=== PATIENT | male | born 1935 | race Caucasian/White ===

== ENCOUNTER 2016-05-14 09:01 | Inpatient (IN) | payer OTHER ==
[~2016-05-14] VITALS: Ht 170.2 cm; Wt 72.0 kg
[2016-05-14] MEDS ORDERED: SIMVASTATIN20 MG PO (09:51)
[2016-05-14] MEDS ORDERED: LOSARTAN POTASS25 MG PO (09:52)
[2016-05-14] MEDS ORDERED: DONEPEZIL HCL10 MG PO (09:52)
[2016-05-14] MEDS ORDERED: PIOGLITAZONE HC30 MG PO (09:53)
[2016-05-14] MEDS ORDERED: OMEPRAZOLE40 M1 PO (09:53)
[2016-05-14] MEDS ORDERED: SERTRALINE HCL100 MG PO (09:54)
[2016-05-14] MEDS ORDERED: ASPIR 8181 M1 PO (09:55)
[2016-05-14] MEDS ORDERED: CALCIUM-MAGNES1 EAC4 PO (09:56)
[2016-05-14 10:08] LABS: EOSINOPHIL (%) 1.8 % (0-5); EOSINOPHIL COUNT 0.1 K/uL (0-0.3); HEMATOCRIT 35.3 % (38.0-50.0); IMMATURE GRANULOCYTE (%) 1.2 % (0.0-0.7); IMMATURE GRANULOCYTE COUNT 0.9 K/uL; LYMPHOCYTE COUNT 1.3 K/uL (1.0-2.8); MCH 32.7 PG (29.0-34.0); MCHC 33.4 G/DL (30.0-36.0); MCV 97.8 FL (86-99); MEAN PLAT.VOLUME 9.6 uM^3 (9.0-12.4); MONOCYTE (%) 7.1 % (3-12); MONOCYTE COUNT 0.5 K/uL (0-0.8); NEUTROPHIL (%) 71.8 % (45-76); NEUTROPHIL COUNT 5.3 K/uL (1.8-6.4); PLATELET COUNT 178 K/uL (156-360); RBC DIS.WIDTH-SD 41.1 % (39-53); RED BLOOD COUNT 3.61 M/uL (4.00-5.50); WHITE BLOOD COUNT 7.3 K/uL (4.1-10.2)
[2016-05-14 10:28] LABS: CHLORIDE 107 mEq/L (99-109); POTASSIUM 4.4 mEq/L (3.7-5.4); SODIUM 139 mEq/L (136-147)
[2016-05-14 10:30] LABS: GLUCOSE 129 mg/dL (70-99)
[2016-05-14 10:31] LABS: ANION GAP 6 MEQ/L (2-14)
[2016-05-14 10:32] LABS: TOTAL BILIRUBIN 0.3 mg/dL (0.0-1.0)
[2016-05-14 10:33] LABS: ALKALINE PHOSPHATASE 109 IU/L (3-129)
[2016-05-14 10:34] LABS: GFR ESTIMATE (CALCULATED) > 59 mL/min/
[2016-05-14 10:35] LABS: UREA NITROGEN (BUN) 27 mg/dL (9-23)
[2016-05-14 10:49] LABS: POINT-OF-CARE METER ID UU14100415
[2016-05-14 11:07] LABS: ADD MIUA? NO; BILIRUBIN NEGATIVE; BLOOD NEGATIVE; COLOR STRAW ((YELLOW)); GLUCOSE (STRIP) NEGATIVE; KETONES NEGATIVE; LEUKOCYTES NEGATIVE; NITRITE NEGATIVE; PROTEIN (STRIP) NEGATIVE; SPECIFIC GRAVITY 1.023 (1.000-1.030); UCUL ADDED? NO; UROBILINOGEN 0.2 MG/DL (0.2-1.0)
[2016-05-14 11:18] LABS: AMPHETAMINE NEGATIVE (500 ng/mL); BARBITURATES NEGATIVE (200 ng/mL); BENZODIAZEPINES NEGATIVE (150 ng/mL); COCAINE NEGATIVE (150 ng/mL); INTERNAL CONTROLS VALID? YES; METHADONE NEGATIVE (200 ng/mL); METHAMPHETAMINE NEGATIVE (500 ng/mL); OPIATES (MORPHINE) NEGATIVE (100 ng/mL); OXYCODONE NEGATIVE (100 ng/mL); PHENCYCLIDINE NEGATIVE (25 ng/mL); PROPOXYPHENE NEGATIVE (300 ng/mL); THC CANNABINOIDS NEGATIVE (50 ng/mL); TRICYCLIC ANTIDEPRESSANTS NEGATIVE (300 ng/mL)
[2016-05-14 13:37] LABS: TROP-I INTERPRETATION NEGATIVE; TROPONIN-I < 0.01 ng/mL (0.0-0.30)
[2016-05-14 13:46] LABS: SAMPLE HEMOLYSIS CHECK 0; SAMPLE ICTERIC CHECK 0; SAMPLE LIPEMIA CHECK 0
[2016-05-14 13:51] LABS: HDL CHOLESTEROL 33 MG/DL (Desirable>=40); LDL CHOLESTEROL 92 mg/dL (Desirable<100); NON-HDL CHOLESTEROL 114 mg/dL (Desirable<160); TOTAL CHOLESTEROL 147 mg/dL (Desirable<200); TRIGLYCERIDES 109 MG/DL (Normal: <150)
[2016-05-14 17:04] LABS: POINT-OF-CARE METER ID UU13113702
[2016-05-14 20:00] VITALS: BP 137/63
[2016-05-14 21:14] LABS: TROP-I INTERPRETATION NEGATIVE; TROPONIN-I < 0.01 ng/mL (0.0-0.30)
[2016-05-15] VITALS (7 sets, daily range): BP systolic 122–138; BP diastolic 56–64
[2016-05-15 10:10] LABS: EOSINOPHIL (%) 1.5 % (0-5); EOSINOPHIL COUNT 0.1 K/uL (0-0.3); HEMATOCRIT 37.9 % (38.0-50.0); IMMATURE GRANULOCYTE (%) 0.2 % (0.0-0.7); LYMPHOCYTE COUNT 1.2 K/uL (1.0-2.8); MCH 31.3 PG (29.0-34.0); MCHC 31.9 G/DL (30.0-36.0); MCV 97.9 FL (86-99); MEAN PLAT.VOLUME 10.1 uM^3 (9.0-12.4); MONOCYTE (%) 6.4 % (3-12); MONOCYTE COUNT 0.6 K/uL (0-0.8); NEUTROPHIL (%) 78.6 % (45-76); PLATELET COUNT 182 K/uL (156-360); RBC DIS.WIDTH-CV 12.5 % (11.8-14.6); RBC DIS.WIDTH-SD 44.1 % (39-53); RED BLOOD COUNT 3.87 M/uL (4.00-5.50); WHITE BLOOD COUNT 8.9 K/uL (4.1-10.2)
[2016-05-15 10:20] LABS: ANION GAP 6 MEQ/L (2-14); CHLORIDE 101 MEQ/L (99-109); POTASSIUM 4.1 MEQ/L (3.7-5.4); SAMPLE HEMOLYSIS CHECK 0; SAMPLE ICTERIC CHECK 0; SAMPLE LIPEMIA CHECK 0; SODIUM 137 MEQ/L (136-147)
[2016-05-15 10:25] LABS: GFR ESTIMATE (CALCULATED) > 59 mL/min/; GLUCOSE 173 mg/dL (70-99); UREA NITROGEN (BUN) 18 mg/dL (9-23)
[2016-05-16 00:05] VITALS: BP 124/59
[2016-05-16 04:10] VITALS: BP 121/61
[2016-05-16 07:01] LABS: EOSINOPHIL (%) 1.4 % (0-5); EOSINOPHIL COUNT 0.1 K/uL (0-0.3); HEMATOCRIT 34.8 % (38.0-50.0); IMMATURE GRANULOCYTE (%) 0.3 % (0.0-0.7); LYMPHOCYTE COUNT 1.6 K/uL (1.0-2.8); MCH 33.1 PG (29.0-34.0); MCHC 33.9 G/DL (30.0-36.0); MCV 97.5 FL (86-99); MONOCYTE (%) 8.5 % (3-12); MONOCYTE COUNT 0.7 K/uL (0-0.8); NEUTROPHIL (%) 68.7 % (45-76); NEUTROPHIL COUNT 5.2 K/uL (1.8-6.4); PLATELET COUNT 149 K/uL (156-360); RBC DIS.WIDTH-CV 12.4 % (11.8-14.6); RBC DIS.WIDTH-SD 43.9 % (39-53); RED BLOOD COUNT 3.57 M/uL (4.00-5.50); WHITE BLOOD COUNT 7.6 K/uL (4.1-10.2)
[2016-05-16 07:26] LABS: ANION GAP 7 MEQ/L (2-14); CHLORIDE 103 MEQ/L (99-109); GFR ESTIMATE (CALCULATED) > 59 mL/min/; SAMPLE HEMOLYSIS CHECK 0; SAMPLE ICTERIC CHECK 0; SAMPLE LIPEMIA CHECK 0; SODIUM 137 MEQ/L (136-147); UREA NITROGEN (BUN) 22 mg/dL (9-23)
[2016-05-16 07:30] LABS: GLUCOSE 117 mg/dL (70-99)
[2016-05-16 09:10] VITALS: BP 156/77
[2016-05-16 11:12] LABS: Estimated Average Glucose 151 mg/dL (70-123); HEMOGLOBIN A1c (GLYCOHEMOGLOB) 6.9 % HGB (Below 5.7)
[2016-05-16 12:27] VITALS: BP 153/66
== END 2016-05-16 16:24 | disposition home or self-care (01) | DRG 69 ==
LOC: EME 09:01 → EDOF 11:50 → 5SOUTH 11:50 → EDOF 13:11 → 5SOUTH 19:09
PROVIDERS: Internal Medicine; Physician Assistant; Student in an Organized Health Care Education/Training Program
DX: G45.9 Transient cerebral ischemic attack, unspecified (principal); R00.1 Bradycardia, unspecified; F03.90 Unspecified dementia, unspecified severity, without behavioral disturbance, psychotic disturbance, mood disturbance, and anxiety; E11.9 Type 2 diabetes mellitus without complications; I10 Essential (primary) hypertension; R41.83 Borderline intellectual functioning; H26.9 Unspecified cataract; D64.9 Anemia, unspecified; K21.9 Gastro-esophageal reflux disease without esophagitis
CPT/HCPCS: 70450; 70496; 70498; 70551; 71020; 80048; 80053; 80061; 81003; 82803; 82948; 83036; 84484; 85025; 92610 GN; 93005; 93306; 94799; 99281; 99285; J1650; J1815; J2310; J7030

== ENCOUNTER 2016-08-13 10:54 | Day surgery (SDC) | payer OTHER ==
[~2016-08-13] VITALS: Ht 165.1 cm; Wt 72.9 kg
[~2016-08-13 10:54] MED LIST: ASPIR 8181 M1 PO; CALCIUM-MAGNES1 EAC4 PO; DONEPEZIL HCL10 MG PO; LOSARTAN POTASS25 MG PO; OMEPRAZOLE40 M1 PO; PIOGLITAZONE HC30 MG PO; SERTRALINE HCL100 MG PO; SIMVASTATIN20 MG PO
[2016-08-13 12:10] LABS: POINT-OF-CARE METER ID UU14174212
[2016-08-13 12:12] VITALS: BP 170/77
[2016-08-13 16:05] LABS: POINT-OF-CARE METER ID UU13113675
[2016-08-13 16:25] VITALS: BP 177/77
[2016-08-13 16:52] VITALS: BP 139/63
[2016-08-13 17:33] VITALS: BP 138/84
== END 2016-08-13 17:34 | disposition home or self-care (01) ==
LOC: SDC 10:54
PROVIDERS: Ophthalmology
DX: H59.021 Cataract (lens) fragments in eye following cataract surgery, right eye (principal); Z98.41 Cataract extraction status, right eye; R00.1 Bradycardia, unspecified; I10 Essential (primary) hypertension; I65.21 Occlusion and stenosis of right carotid artery; E11.9 Type 2 diabetes mellitus without complications; K21.9 Gastro-esophageal reflux disease without esophagitis; E78.00 Pure hypercholesterolemia, unspecified; F70 Mild intellectual disabilities; F03.90 Unspecified dementia, unspecified severity, without behavioral disturbance, psychotic disturbance, mood disturbance, and anxiety; F32.9 Major depressive disorder, single episode, unspecified; Z86.73 Personal history of transient ischemic attack (TIA), and cerebral infarction without residual deficits; Z79.82 Long term (current) use of aspirin; Z79.899 Other long term (current) drug therapy
CPT/HCPCS: 82948; 87641; J0690; J0713; J1100; J2405; J3010

== ENCOUNTER 2016-08-25 16:00 | Emergency (ER) | payer OTHER ==
[~2016-08-25] VITALS: Ht 157.5 cm; Wt 74.1 kg
[2016-08-25 16:44] LABS: HEMATOCRIT 38.5 % (38.0-50.0); MCH 32.6 PG (29.0-34.0); MEAN PLAT.VOLUME 9.4 uM^3 (9.0-12.4); PLATELET COUNT 170 K/uL (156-360); RBC DIS.WIDTH-CV 12.4 % (11.8-14.6); RBC DIS.WIDTH-SD 44.7 % (39-53); RED BLOOD COUNT 3.89 M/uL (4.00-5.50); WHITE BLOOD COUNT 10.6 K/uL (4.1-10.2)
[2016-08-25 16:53] LABS: CHLORIDE 100 mEq/L (99-109); POTASSIUM 4.4 mEq/L (3.7-5.4); SODIUM 136 mEq/L (136-147)
[2016-08-25 16:54] LABS: GLUCOSE 200 mg/dL (70-99)
[2016-08-25 16:56] LABS: ANION GAP 11 MEQ/L (2-14)
[2016-08-25 16:58] LABS: GFR ESTIMATE (CALCULATED) 57 mL/min/
[2016-08-25 17:04] LABS: TROP-I INTERPRETATION NEGATIVE; TROPONIN-I < 0.01 ng/mL (0.0-0.30)
[2016-08-25 17:12] LABS: UREA NITROGEN (BUN) 28 mg/dL (9-23)
[2016-08-25 19:12] LABS: TROP-I INTERPRETATION NEGATIVE; TROPONIN-I < 0.01 ng/mL (0.0-0.30)
[2016-08-25 19:36] LABS: LIPASE 5 U/L (1.0-51.0)
[2016-08-25 19:43] LABS: ALKALINE PHOSPHATASE 56 IU/L (3-129)
[2016-08-25 20:03] LABS: ADD MIUA? NO; BILIRUBIN NEGATIVE; BLOOD NEGATIVE; COLOR YELLOW ((YELLOW)); GLUCOSE (STRIP) NEGATIVE; KETONES NEGATIVE; LEUKOCYTES NEGATIVE; NITRITE NEGATIVE; PROTEIN (STRIP) NEGATIVE; SPECIFIC GRAVITY 1.015 (1.000-1.030); UCUL ADDED? NO; UROBILINOGEN 0.2 MG/DL (0.2-1.0)
[2016-08-25 20:03] LABS: DIRECT BILIRUBIN 0.1 mg/dL (0.0-0.3); TOTAL BILIRUBIN 0.4 MG/DL (0.0-1.0)
[2016-08-25] MEDS ORDERED: ZOFRAN4 MG PO (21:27)
[2016-08-25 21:31] LABS: POINT-OF-CARE METER ID UU13113800
[2016-08-25 21:40] VITALS: BP 175/77
== END 2016-08-25 21:40 | disposition home or self-care (01) ==
LOC: EME 16:00
PROVIDERS: Physician Assistant
DX: K44.9 Diaphragmatic hernia without obstruction or gangrene (principal); E11.65 Type 2 diabetes mellitus with hyperglycemia; I10 Essential (primary) hypertension; F03.90 Unspecified dementia, unspecified severity, without behavioral disturbance, psychotic disturbance, mood disturbance, and anxiety
CPT/HCPCS: 71020; 74177; 80048; 80076; 81003; 82010; 82948; 83690; 84484; 85027; 93005; 99281; 99285; J7030

== ENCOUNTER 2016-08-30 13:47 | Emergency (ER) | payer OTHER ==
[~2016-08-30] VITALS: Ht 172.7 cm; Wt 73.4 kg
[~2016-08-30 13:47] MED LIST changes: +ZOFRAN4 MG PO
[2016-08-30 15:42] LABS: ADD MIUA? YES; BILIRUBIN NEGATIVE; BLOOD NEGATIVE; COLOR YELLOW ((YELLOW)); GLUCOSE (STRIP) NEGATIVE; KETONES NEGATIVE; LEUKOCYTES NEGATIVE; NITRITE NEGATIVE; PROTEIN (STRIP) NEGATIVE; SPECIFIC GRAVITY 1.012 (1.000-1.030)
[2016-08-30 15:49] LABS: BACTERIA NONE SEEN /HPF; EPITHELIAL CELLS RARE /HPF; MUCUS NONE SEEN /LPF; RED BLOOD CELLS 0-5 /HPF (0-5); UCUL ADDED? NO; WHITE BLOOD CELLS 0-5 /HPF (0-5)
[2016-08-30 15:53] LABS: EOSINOPHIL COUNT 0.1 K/uL (0-0.3); HEMATOCRIT 37.8 % (38.0-50.0); IMMATURE GRANULOCYTE (%) 0.5 % (0.0-0.7); INSTRUMENT ABS NEUTROPHIL CT 6.9 K/uL; LYMPHOCYTE COUNT 1.1 K/uL (1.0-2.8); MCH 32.6 PG (29.0-34.0); MCHC 33.1 G/DL (30.0-36.0); MCV 98.4 FL (86-99); MEAN PLAT.VOLUME 9.4 uM^3 (9.0-12.4); MONOCYTE (%) 7.1 % (3-12); MONOCYTE COUNT 0.6 K/uL (0-0.8); NEUTROPHIL (%) 78.5 % (45-76); NEUTROPHIL COUNT 6.9 K/uL (1.8-6.4); PLATELET COUNT 159 K/uL (156-360); RBC DIS.WIDTH-CV 12.1 % (11.8-14.6); RBC DIS.WIDTH-SD 43.8 % (39-53); RED BLOOD COUNT 3.84 M/uL (4.00-5.50); WHITE BLOOD COUNT 8.8 K/uL (4.1-10.2)
[2016-08-30 16:00] LABS: CHLORIDE 103 mEq/L (99-109); POTASSIUM 3.9 mEq/L (3.7-5.4); SODIUM 137 mEq/L (136-147)
[2016-08-30 16:01] LABS: MAGNESIUM 2.1 mg/dL (1.3-2.7)
[2016-08-30 16:03] LABS: GLUCOSE 120 mg/dL (70-99)
[2016-08-30 16:04] LABS: ANION GAP 9 MEQ/L (2-14)
[2016-08-30 16:05] LABS: TOTAL BILIRUBIN 0.6 mg/dL (0.0-1.0)
[2016-08-30 16:06] LABS: ALKALINE PHOSPHATASE 109 IU/L (3-129)
[2016-08-30 16:07] LABS: GFR ESTIMATE (CALCULATED) > 59 mL/min/
[2016-08-30 16:08] LABS: UREA NITROGEN (BUN) 17 mg/dL (9-23)
[2016-08-30 18:02] VITALS: BP 185/85
== END 2016-08-30 18:31 | disposition home or self-care (01) ==
LOC: EME 13:47
PROVIDERS: Emergency Medicine
DX: R56.9 Unspecified convulsions (principal); F79 Unspecified intellectual disabilities; E11.9 Type 2 diabetes mellitus without complications; Z79.82 Long term (current) use of aspirin
CPT/HCPCS: 70450; 80053; 81003; 83735; 85025; 93005; 99281; 99285; J7030

== ENCOUNTER 2017-05-16 22:20 | Inpatient (IN) | payer OTHER ==
[~2017-05-16] VITALS: Ht 162.6 cm; Wt 80.0 kg
[~2017-05-16 22:20] MED LIST changes: +TYLENOL REGULA325 MG PO
[2017-05-17 06:16] VITALS: BP 157/70
[2017-05-17 12:24] VITALS: BP 169/77
[2017-05-17 13:05] VITALS: BP 118/74
[2017-05-17 16:10] VITALS: BP 135/60
[2017-05-17 18:32] LABS: HEMATOCRIT 29.7 % (38.0-50.0); MCV 102.1 FL (86-99)
[2017-05-17 18:38] LABS: HEMOGLOBIN 9.6 G/DL (12.5-16.6)
[2017-05-17 20:17] VITALS: BP 111/54
[2017-05-18] VITALS (7 sets, daily range): BP systolic 129–190; BP diastolic 58–82
[2017-05-18 05:55] LABS: CHLORIDE 101 MEQ/L (99-109); CREATININE 1.5 MG/DL (0.6-1.3); GFR ESTIMATE (CALCULATED) 48 mL/min/ (58.99-99999); GLUCOSE 168 mg/dL (70-99); POTASSIUM 4.2 MEQ/L (3.7-5.4); SODIUM 136 MEQ/L (136-147); UREA NITROGEN (BUN) 30 mg/dL (9-23)
[2017-05-19 00:30] VITALS: BP 134/61
[2017-05-19 04:30] VITALS: BP 122/57
[2017-05-19 08:00] VITALS: BP 172/76
[2017-05-19] MEDS ORDERED: DOCUSATE SODIU100 MG PO (09:40)
[2017-05-19] MEDS ORDERED: HYDROCODON-ACE1 EAC7 PO (09:41)
[2017-05-19] MEDS ORDERED: ELIQUIS2.5 MG PO (09:41)
[2017-05-19 12:00] VITALS: BP 178/79
[2017-05-19 15:49] VITALS: BP 179/79
[2017-05-19 20:14] VITALS: BP 180/86
[2017-05-20] VITALS (8 sets, daily range): BP systolic 105–174; BP diastolic 50–71
[2017-05-20 09:31] LABS: HEMATOCRIT 24.1 % (38.0-50.0); HEMOGLOBIN 8.1 G/DL (12.5-16.6); MCH 33.2 PG (29.0-34.0); MCHC 33.6 G/DL (30.0-36.0); MCV 98.8 FL (86-99); PLATELET COUNT 125 K/uL (156-360); RBC DIS.WIDTH-CV 12.3 % (11.8-14.6); RBC DIS.WIDTH-SD 44.6 % (39-53); WHITE BLOOD COUNT 7.1 K/uL (4.1-10.2)
[2017-05-20 09:45] LABS: RED BLOOD COUNT 2.44 M/uL (4.00-5.50)
[2017-05-20 11:24] LABS: CHLORIDE 99 MEQ/L (99-109); CREATININE 1.1 MG/DL (0.6-1.3); GFR ESTIMATE (CALCULATED) > 59 mL/min/ (58.99-99999); GLUCOSE 236 mg/dL (70-99); POTASSIUM 3.8 MEQ/L (3.7-5.4); SODIUM 135 MEQ/L (136-147); UREA NITROGEN (BUN) 25 mg/dL (9-23)
[2017-05-20 17:01] LABS: C DIFF TOXIN NEGATIVE (NEGATIVE)
[2017-05-21] VITALS (17 sets, daily range): BP systolic 109–134; BP diastolic 45–62
[2017-05-21 06:14] LABS: CHLORIDE 102 MEQ/L (99-109); CREATININE 1.1 MG/DL (0.6-1.3); GFR ESTIMATE (CALCULATED) > 59 mL/min/ (58.99-99999); GLUCOSE 158 mg/dL (70-99); POTASSIUM 3.4 MEQ/L (3.7-5.4); SODIUM 138 MEQ/L (136-147)
[2017-05-21 06:20] LABS: UREA NITROGEN (BUN) 41 mg/dL (9-23)
[2017-05-21 07:43] LABS: HEMATOCRIT 18.6 % (38.0-50.0); MCH 33.5 PG (29.0-34.0); MCHC 33.3 G/DL (30.0-36.0); MCV 100.5 FL (86-99); PLATELET COUNT 106 K/uL (156-360); RBC DIS.WIDTH-CV 12.5 % (11.8-14.6); RBC DIS.WIDTH-SD 45.8 % (39-53); WHITE BLOOD COUNT 6.1 K/uL (4.1-10.2)
[2017-05-21 07:51] LABS: HEMOGLOBIN 6.2 G/DL (12.5-16.6); RED BLOOD COUNT 1.85 M/uL (4.00-5.50)
[2017-05-21 10:21] LABS: HEMATOCRIT 19.2 % (38.0-50.0); MCV 100.5 FL (86-99)
[2017-05-21 10:23] LABS: HEMOGLOBIN 6.3 G/DL (12.5-16.6)
[2017-05-21 18:48] LABS: GASTRIC OCCULT BLD. NEGATIVE
[2017-05-21 19:37] LABS: BASOPHIL (%) 0.1 % (0-1); EOSINOPHIL (%) 0.8 % (0-5); EOSINOPHIL COUNT 0.1 K/uL (0-0.3); HEMATOCRIT 25.2 % (38.0-50.0); HEMOGLOBIN 8.3 G/DL (12.5-16.6); IMMATURE GRANULOCYTE (%) 0.5 % (0.0-0.7); LYMPHOCYTE (%) 15.3 % (15-42); LYMPHOCYTE COUNT 1.2 K/uL (1.0-2.8); MCH 31.4 PG (29.0-34.0); MCHC 32.9 G/DL (30.0-36.0); MCV 95.5 FL (86-99); MONOCYTE (%) 12.8 % (3-12); NEUTROPHIL (%) 70.5 % (45-76); NEUTROPHIL COUNT 5.4 K/uL (1.8-6.4); PLATELET COUNT 118 K/uL (156-360); RBC DIS.WIDTH-CV 15.2 % (11.8-14.6); RBC DIS.WIDTH-SD 53.3 % (39-53); RED BLOOD COUNT 2.64 M/uL (4.00-5.50); WHITE BLOOD COUNT 7.6 K/uL (4.1-10.2)
[2017-05-22 00:22] VITALS: BP 174/77
[2017-05-22 01:00] VITALS: BP 138/53
[2017-05-22 06:09] LABS: BASOPHIL (%) 0.3 % (0-1); EOSINOPHIL (%) 1.9 % (0-5); EOSINOPHIL COUNT 0.1 K/uL (0-0.3); HEMATOCRIT 24.7 % (38.0-50.0); IMMATURE GRANULOCYTE (%) 0.5 % (0.0-0.7); LYMPHOCYTE (%) 20.3 % (15-42); LYMPHOCYTE COUNT 1.3 K/uL (1.0-2.8); MCH 31.1 PG (29.0-34.0); MCHC 32.4 G/DL (30.0-36.0); MCV 96.1 FL (86-99); MONOCYTE (%) 11.8 % (3-12); MONOCYTE COUNT 0.7 K/uL (0-0.8); NEUTROPHIL (%) 65.2 % (45-76); NEUTROPHIL COUNT 4.1 K/uL (1.8-6.4); PLATELET COUNT 118 K/uL (156-360); RBC DIS.WIDTH-CV 15.4 % (11.8-14.6); RBC DIS.WIDTH-SD 54.6 % (39-53); RED BLOOD COUNT 2.57 M/uL (4.00-5.50); WHITE BLOOD COUNT 6.3 K/uL (4.1-10.2)
[2017-05-22 06:30] LABS: CHLORIDE 106 MEQ/L (99-109); CREATININE 0.9 MG/DL (0.6-1.3); GFR ESTIMATE (CALCULATED) > 59 mL/min/ (58.99-99999); GLUCOSE 134 mg/dL (70-99); SODIUM 141 MEQ/L (136-147); UREA NITROGEN (BUN) 28 mg/dL (9-23)
[2017-05-22 07:36] VITALS: BP 135/63
[2017-05-22 16:13] VITALS: BP 135/63
[2017-05-22 20:20] LABS: BACTERIA RARE /HPF; EPITHELIAL CELLS RARE /HPF; HYALINE CASTS 0-5 /LPF; MUCUS TRACE /LPF; RED BLOOD CELLS 0-5 /HPF (0-5); WHITE BLOOD CELLS 0-5 /HPF (0-5)
[2017-05-23 00:28] VITALS: BP 124/66
[2017-05-23 06:20] LABS: BASOPHIL (%) 0.3 % (0-1); EOSINOPHIL (%) 2.2 % (0-5); EOSINOPHIL COUNT 0.1 K/uL (0-0.3); HEMATOCRIT 24.9 % (38.0-50.0); IMMATURE GRANULOCYTE (%) 0.6 % (0.0-0.7); LYMPHOCYTE (%) 22.9 % (15-42); LYMPHOCYTE COUNT 1.4 K/uL (1.0-2.8); MCHC 32.1 G/DL (30.0-36.0); MCV 96.5 FL (86-99); MONOCYTE (%) 9.4 % (3-12); MONOCYTE COUNT 0.6 K/uL (0-0.8); NEUTROPHIL (%) 64.6 % (45-76); NEUTROPHIL COUNT 4.1 K/uL (1.8-6.4); PLATELET COUNT 132 K/uL (156-360); RBC DIS.WIDTH-CV 14.9 % (11.8-14.6); RBC DIS.WIDTH-SD 52.6 % (39-53); RED BLOOD COUNT 2.58 M/uL (4.00-5.50); WHITE BLOOD COUNT 6.3 K/uL (4.1-10.2)
[2017-05-23 06:44] LABS: CHLORIDE 105 MEQ/L (99-109); GFR ESTIMATE (CALCULATED) > 59 mL/min/ (58.99-99999); GLUCOSE 135 mg/dL (70-99); SODIUM 139 MEQ/L (136-147); UREA NITROGEN (BUN) 26 mg/dL (9-23)
[2017-05-23 07:45] VITALS: BP 154/71
[2017-05-23 16:25] VITALS: BP 140/67
[2017-05-23 23:19] VITALS: BP 146/70
[2017-05-24 04:41] LABS: BASOPHIL (%) 0.3 % (0-1); EOSINOPHIL (%) 2.3 % (0-5); EOSINOPHIL COUNT 0.2 K/uL (0-0.3); HEMATOCRIT 25.6 % (38.0-50.0); HEMOGLOBIN 8.5 G/DL (12.5-16.6); IMMATURE GRANULOCYTE (%) 1.1 % (0.0-0.7); LYMPHOCYTE (%) 19.6 % (15-42); LYMPHOCYTE COUNT 1.4 K/uL (1.0-2.8); MCH 31.8 PG (29.0-34.0); MCHC 33.2 G/DL (30.0-36.0); MCV 95.9 FL (86-99); MONOCYTE (%) 8.2 % (3-12); MONOCYTE COUNT 0.6 K/uL (0-0.8); NEUTROPHIL (%) 68.5 % (45-76); NEUTROPHIL COUNT 4.9 K/uL (1.8-6.4); PLATELET COUNT 152 K/uL (156-360); RBC DIS.WIDTH-CV 14.2 % (11.8-14.6); RBC DIS.WIDTH-SD 49.4 % (39-53); RED BLOOD COUNT 2.67 M/uL (4.00-5.50); WHITE BLOOD COUNT 7.1 K/uL (4.1-10.2)
[2017-05-24 04:55] LABS: CHLORIDE 103 mEq/L (99-109); POTASSIUM 4.4 mEq/L (3.7-5.4); SODIUM 136 mEq/L (136-147)
[2017-05-24 04:57] LABS: GLUCOSE 133 mg/dL (70-99)
[2017-05-24 05:01] LABS: CREATININE 0.9 mg/dL (0.6-1.3); GFR ESTIMATE (CALCULATED) > 59 mL/min/ (58.99-99999)
[2017-05-24 05:02] LABS: UREA NITROGEN (BUN) 21 mg/dL (9-23)
[2017-05-24 08:11] VITALS: BP 152/68
[2017-05-25 14:16] LABS: STOOL OCCULT BLD 1ST SPECIMEN POSITIVE
== END 2017-05-24 13:21 | DRG 470 ==
LOC: ENRESERV 22:20 → 2SOUTH 05-17 05:57 → 3WEST 05-17 05:57 → 2SOUTH 05-17 11:45 → 3WEST 05-17 12:03 → 2SOUTH 05-17 15:53 → 3WEST 05-20 08:22 → ENRESERV 05-20 08:24 → 3EAST 05-20 15:44
PROVIDERS: Internal Medicine; Internal Medicine Gastroenterology; Orthopaedic Surgery; Physician Assistant; Physician Assistant Medical
PROC: 0SRB04A Replacement of Left Hip Joint with Ceramic on Polyethylene Synthetic Substitute, Uncemented, Open Approach (ICD-10-PCS; principal; 2017-05-17)
PROC: 30233N1 Transfusion of Nonautologous Red Blood Cells into Peripheral Vein, Percutaneous Approach (ICD-10-PCS; 2017-05-21)
DX: M16.12 Unilateral primary osteoarthritis, left hip (principal); K56.7 Ileus, unspecified; E87.6 Hypokalemia; R50.9 Fever, unspecified; D64.9 Anemia, unspecified; I10 Essential (primary) hypertension; E11.9 Type 2 diabetes mellitus without complications; K21.9 Gastro-esophageal reflux disease without esophagitis; F32.9 Major depressive disorder, single episode, unspecified; F03.90 Unspecified dementia, unspecified severity, without behavioral disturbance, psychotic disturbance, mood disturbance, and anxiety; E78.00 Pure hypercholesterolemia, unspecified; Z79.82 Long term (current) use of aspirin
CPT/HCPCS: 36415; 71045; 71275; 73501; 73502; 74018; 74176; 80048; 81003; 81015; 82271; 82272; 82948; 83880; 85014; 85018; 85025; 85027; 85610; 85730; 86850; 86900; 86901; 86920; 87493; 87502; 94640; 94640 76; 94799; 97530 GP; 99202; J0131; J0690; J1815; J1885; J2250; J3010; J3480; J7030; J7050; J7120; P9016; S0020